=== PATIENT | male | born 2000 | race Caucasian/White ===

== ENCOUNTER 2019-03-03 15:37 | Emergency (ER) | payer SELFPAY ==
[2019-03-03] MEDS: HYDROCODONE/APAP (5/325) TAB PO (16:36)
[2019-03-03] MEDS: DIPHTH/TET/ACEL PERTUSS (ADULT) 0.5 ML VIAL IM* (16:37)
== END 2019-03-03 18:52 | disposition home or self-care (01) ==
LOC: FTE 18:52
DX: S61.012A Laceration without foreign body of left thumb without damage to nail, initial encounter (principal); F17.210 Nicotine dependence, cigarettes, uncomplicated; W29.3XXA Contact with powered garden and outdoor hand tools and machinery, initial encounter; Y92.89 Other specified places as the place of occurrence of the external cause; Z23 Encounter for immunization
CPT/HCPCS: 12002; 73140; 90471; 90715; 99283-25